=== PATIENT | female | born 1950 | race Caucasian/White ===

== ENCOUNTER 2017-05-04 08:58 | Emergency (ER) | payer OTHER ==
[2017-05-04] MEDS ORDERED: Diphtheria,Pertussis(Acell),Tetanus Vaccine 0.5 ML SDV inactive IM ONE (09:44)
[2017-05-04 10:03] VITALS: BP 160/79
--- NOTE | 2017-05-04 14:05 | EDM.PDOC ---
ED HPI GENERAL MEDICAL PROBLEM - General Chief Complaint: Laceration Stated Complaint: laceration Time Seen by Provider: 05/04/17 09:17 Source of Information: Reports: Patient, Family History Limitations: Reports: No Limitations - History of Present Illness INITIAL COMMENTS - FREE TEXT/NARRATIVE: This is a 66yo F with history of alzheimers here for a recent fall and hitting her head on the frame of a dresser. There scalp has been cleaned and patient was brought in by her . Patient denies any WILCOX, loss of consciousness, or dizziness. and patient denies any other symptoms. 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 ED EXAM, SKIN/RASH Exam: See Below Exam Limited By: No Limitations General Appearance: Alert, WD/WN, No Apparent Distress Eye Exam: Bilateral Eye: EOMI, PERRL Ears: Normal External Exam Nose: Normal Inspection Throat/Mouth: Normal Inspection Head: Other (scalp laceration - appears like the skin is compressed with a small punture wound rather than a full laceration) Neck: Normal Inspection Respiratory/Chest: No Respiratory Distress, Lungs Clear, Normal Breath Sounds Cardiovascular: Normal Peripheral Pulses, Regular Rate, Rhythm Peripheral Pulses: 2+: Dorsalis Pedis (L), Dorsalis Pedis (R) GI/Abdominal: Normal Bowel Sounds Extremities: Normal Inspection Neurological: Alert, Normal Cognition, Normal Gait Psychiatric: Normal Affect, Normal Mood Skin: Warm, Dry, Other (wound on the top of the scalp) Course - Vital Signs Last Recorded V/S: Last Vital Signs Temp 36.3 C 05/04/17 10:01 Pulse 58 L 07/03/17 10:01 Resp 16 05/04/17 10:01 BP 160/79 H 05/04/17 10:01 Pulse Ox 100 05/04/17 10:01 - Orders/Labs/Meds Orders: Active Orders 24 hr Category Date Time Status Vaccines to be Administered [RC] PER UNIT ROUTINE Care 05/04/17 09:45 Active Meds: Medications Discontinued Medications Generic Name Dose Route Start Last Admin Trade Name Adán PRN Reason Stop Dose Admin Diphtheria/Tetanus/Acell Pertussis 0.5 ml 05/04/17 09:44 05/04/17 09:35 Boostrix IM 05/04/17 09:45 0.5 ml .ONCE ONE Administration Departure - Departure Time of Disposition: 10:00 Disposition: Home, Self-Care 01 Condition: Good Clinical Impression: Wound, open, scalp Qualifiers: Encounter type: initial encounter Open wound type: puncture wound Foreign body presence: without foreign body Qualified Code(s): S01.03XA - Puncture wound without foreign body of scalp, initial encounter - Discharge Information Instructions: Subdural Hematoma, Laceration Care, Adult, VIS, Diphtheria, Tetanus, and Pertussis (DTaP) - CDC Referrals: PCP,Unknown [Primary Care Provider] - Forms: ED Department Discharge - Problem List & Annotations (1) Wound, open, scalp SNOMED Code(s): 962014191 Code(s): S01.00XA - UNSPECIFIED OPEN WOUND OF SCALP, INITIAL ENCOUNTER Status: Acute Priority: High Qualifiers: Encounter type: initial encounter Open wound type: puncture wound Foreign body presence: without foreign body Qualified Code(s): S01.03XA - Puncture wound without foreign body of scalp, initial encounter - Problem List Review Problem List Initiated/Reviewed/Updated: Yes - My Orders Last 24 Hours: My Active Orders 05/04/17 09:45 Vaccines to be Administered [RC] PER UNIT ROUTINE - Assessment/Plan Last 24 Hours: My Active Orders 05/04/17 09:45 Vaccines to be Administered [RC] PER UNIT ROUTINE Plan: Addressed tetanus. Patient counseled on wound care and close monitoring and f/u for any infection or continued bleeding. Patient and counseled extensively and close monitoring for any neurological symptoms, WILCOX, dizziness, weakness, tingling for f/u CT head as needed. and patient agree on follow up CT as needed or further evaluation as needed if any new symptoms.
== END 2017-05-04 09:37 | disposition home or self-care (01) ==
LOC: LB.ED 08:58
DX: S01.03XA Puncture wound without foreign body of scalp, initial encounter (principal); G30.9 Alzheimer's disease, unspecified; Z23 Encounter for immunization; Z79.899 Other long term (current) drug therapy; W01.198A Fall on same level from slipping, tripping and stumbling with subsequent striking against other object, initial encounter
CPT/HCPCS: 90471; 90715; 99283-25